=== PATIENT | female | born 1940 | race Caucasian/White ===

== ENCOUNTER → 2022-04-15 | Emergency (ER) | payer OTHER ==
[~2022-04-15] VITALS: Ht 157.5 cm; Wt 99.8 kg
[~2022-04-15] MED LIST: ALEN70TA80 PO; ALLO100T PO; AMLO-213 PO; ATEN25TA PO; CALC1TAB30 PO; CYAN-51 PO; ENAL10TA75 PO; FAMO-131 PO; FAMOTIDINE/PF INJ 20 MG/2 ML VIAL IV ONE; FOLI0.4T6 PO; IBUP-1953 PO; LORA10TA7 PO; LOVA40TA2 PO; METF-440 PO; OMEP20CA15 PO; PRED50TA PO; diphenhydrAMINE HCL 50 MG CAPSULE ONE; diphenhydrAMINE HCL 50 MG CAPSULE PO ONE; methylPREDNISolone SOD SUCC 125 MG/2ML VIAL IV ONE; methylPREDNISolone SOD SUCC 125 MG/2ML VIAL ONE
--- NOTE | 2022-04-15 12:50 | NUR ---
LIZETT [id number] FROM [facility] FOR NOTED RASH TO BLE. TAKING KEFLEX FOR UTI X WEDNESDAY, DENIES THROAT DISCOMFORT/SOB. TO ER BED 9.
[2022-04-15 13:27] LABS: BASOPHILS % (AUTO) 0.4 % (0.0-2.0); EOSINOPHILS % (AUTO) 3.6 % (0.0-6.0); HEMATOCRIT 35 % (33-45); HEMOGLOBIN 11.3 g/dL (11.5-14.8); LYMPHOCYTES # (AUTO) 0.4 K/uL (0.8-4.8); LYMPHOCYTES % (AUTO) 4.8 % (20.0-44.0); MEAN CORPUSCULAR HGB CONC 33 g/dl (31.0-36.0); MEAN CORPUSCULAR VOLUME 84 fL (82-100); MONOCYTES # (AUTO) 0.4 K/uL (0.1-1.30); MONOCYTES % (AUTO) 4.6 % (2.0-12.0); NEUTROPHILS # (AUTO) 7.6 K/uL (1.8-8.9); NEUTROPHILS % (AUTO) 86.6 % (43.0-81.0); PLATELET COUNT (AUTO) 210 K/uL (150-450); RED BLOOD CELL COUNT(AUTO) 4.15 MIL/uL (4.0-5.2); WHITE BLOOD COUNT (AUTO) 8.8 K/uL (4.3-11.0)
[2022-04-15 13:50] LABS: CALCIUM, SERUM 8.8 mg/dL (8.5-10.1); POTASSIUM 4.1 mmol/L (3.5-5.1)
--- NOTE | 2022-04-15 16:02 | NUR ---
[facility] ETA 1645.
--- NOTE | 2022-04-15 16:57 | NUR ---
IV removed. Catheter intact and site benign. Pressure and 4x4 applied to site. No bleeding noted.Patient discharged to home in stable condition. Written and verbal after care instructions given. Patient verbalizes understanding of instruction.
[2022-04-15 16:58] VITALS: BP 145/78
== END | disposition home or self-care (01) ==
LOC: ER 12:35
DX: R21 Rash and other nonspecific skin eruption (principal); T36.1X5A Adverse effect of cephalosporins and other beta-lactam antibiotics, initial encounter; I10 Essential (primary) hypertension; E11.9 Type 2 diabetes mellitus without complications; G89.4 Chronic pain syndrome; Z88.1 Allergy status to other antibiotic agents; Z88.8 Allergy status to other drugs, medicaments and biological substances; Z79.899 Other long term (current) drug therapy; Z79.84 Long term (current) use of oral hypoglycemic drugs; Y92.89 Other specified places as the place of occurrence of the external cause
CPT/HCPCS: 99284; 96374; 96375; 85025; 80048; 36415; Q0163; J3490; J2930

== ENCOUNTER 2023-10-08 15:35 | Inpatient (IN) | payer MEDICARE, OTHER ==
[~2023-10-08] VITALS: Ht 157.5 cm; Wt 111.1 kg
[~2023-10-08 15:35] MED LIST changes: -FAMOTIDINE/PF INJ 20 MG/2 ML VIAL IV ONE; -diphenhydrAMINE HCL 50 MG CAPSULE ONE; -diphenhydrAMINE HCL 50 MG CAPSULE PO ONE; -methylPREDNISolone SOD SUCC 125 MG/2ML VIAL IV ONE; -methylPREDNISolone SOD SUCC 125 MG/2ML VIAL ONE
[2023-10-08 16:28] LABS: BASOPHILS # (AUTO) 0.1 K/uL (0.0-0.2); BASOPHILS % (AUTO) 0.4 % (0.0-2.0); EOSINOPHILS % (AUTO) 0.1 % (0.0-6.0); HEMATOCRIT 41 % (33-45); HEMOGLOBIN 13.1 g/dL (11.5-14.8); LYMPHOCYTES # (AUTO) 0.5 K/uL (0.8-4.8); LYMPHOCYTES % (AUTO) 4.5 % (20.0-44.0); MEAN CORPUSCULAR HEMOGLOBIN 28 PG (26.0-33.0); MEAN CORPUSCULAR HGB CONC 32 g/dl (31.0-36.0); MEAN CORPUSCULAR VOLUME 87 fL (82-100); MONOCYTES # (AUTO) 0.3 K/uL (0.1-1.30); MONOCYTES % (AUTO) 2.5 % (2.0-12.0); NEUTROPHILS # (AUTO) 10.8 K/uL (1.8-8.9); NEUTROPHILS % (AUTO) 92.5 % (43.0-81.0); PLATELET COUNT (AUTO) 228 K/uL (150-450); RED BLOOD CELL COUNT(AUTO) 4.75 MIL/uL (4.0-5.2); RED CELL DISTRIBUTION WIDTH 16.1 % (11.5-15.0); WHITE BLOOD COUNT (AUTO) 11.7 K/uL (4.3-11.0)
[2023-10-08] MEDS ORDERED: methylPREDNISolone SOD SUCC 125 MG/2ML VIAL ONE (16:36)
[2023-10-08] MEDS: methylPREDNISolone SOD SUCC 125 MG/2ML VIAL IV ONE (16:37)
[2023-10-08] MEDS: IPRATROPIUM NEB FS 0.5 MG/2.5 ML AMPUL.NEB NEB ONE (16:44)
[2023-10-08] MEDS: ALBUTEROL FS 2.5 MG/3 ML VIAL.NEB CONTNEB ONE (16:44)
[2023-10-08] MEDS ORDERED: ALBUTEROL FS 2.5 MG/3 ML VIAL.NEB ONE (16:45)
[2023-10-08] MEDS ORDERED: IPRATROPIUM NEB FS 0.5 MG/2.5 ML AMPUL.NEB ONE (16:45)
[2023-10-08 16:47] LABS: INR 1.12 (0.91-1.10); PARTIAL THROMBOPLASTIN TIME 32.1 SEC (24.3-34.3); PROTHROMBIN TIME 11.8 SECS (9.2-11.1)
[2023-10-08 16:50] LABS: ABG BASE EXCESS 4.3 mmol/L; ABG OXYGEN SATURATION 96.5 % (92.0-98.5); ABG PCO2 62.5 mmHg (35.0-45.0); ABG PO2 96.2 mmHg (75.0-100.0); ABG TOTAL HEMOGLOBIN 14.4 G/dL (12.0-16.0); COHb 1.3 % (0.5-1.5); O2Hb 95.2 % (94.0-97.0); SITE, ABG Right Radial; VENT MODE, BG 15LPM NRB
[2023-10-08 16:54] LABS: ALANINE AMINOTRANSFERASE 16 U/L (12-78); ALBUMIN 3.1 g/dL (3.4-5.0); ALKALINE PHOSPHATASE 102 U/L (46-116); ASPARTATE AMINOTRANSFERASE 15 U/L (15-37); BILIRUBIN,DIRECT 0.1 mg/dL (0.0-0.2); BILIRUBIN,TOTAL 0.4 mg/dL (0.2-1.0); CALCIUM, SERUM 9.3 mg/dL (8.5-10.1); CARBON DIOXIDE 36 mmol/L (21-32); CHLORIDE 96 mmol/L (98-107); CREATININE 0.7 mg/dL (0.6-1.3); GLUCOSE 194 mg/dL (74-106); NT-PRO BNP 5096 pg/mL (0-125); SODIUM SERUM 139 mmol/L (136-145); TOTAL PROTEIN, SERUM 6.5 g/dL (6.4-8.2); UREA NITROGEN, BLOOD 19 mg/dL (7-18)
[2023-10-08] MEDS ORDERED: FUROSEMIDE 40 MG/4 ML VIAL ONE (17:50)
[2023-10-08] MEDS: FUROSEMIDE 40 MG/4 ML VIAL IV ONE (17:56)
[2023-10-08] MEDS ORDERED: FURO20TA4 PO (18:03)
[2023-10-08] MEDS ORDERED: METO100T14 PO (18:03)
[2023-10-08] MEDS ORDERED: DILT-32 PO (18:03)
[2023-10-08] MEDS ORDERED: POTA-10 PO (18:03)
[2023-10-08] MEDS ORDERED: METF-881 PO (18:03)
[2023-10-08] MEDS ORDERED: SENN-261 PO (18:03)
[2023-10-08] MEDS ORDERED: APIX5TAB PO (18:03)
[2023-10-08] MEDS ORDERED: LOVA20TA2 PO (18:03)
[2023-10-08 22:30] VITALS: BP 142/76; TEMP 96.9; O2SAT 96
[2023-10-08 22:45] VITALS: BP 145/98; O2SAT 95
[2023-10-08 23:00] VITALS: BP 148/77; O2SAT 96
[2023-10-08] MEDS ORDERED: ACETAMINOPHEN 325 MG TABLET PO PRN (23:00)
[2023-10-08] MEDS ORDERED: ONDANSETRON HCL/PF 4 MG/2 ML VIAL IVP PRN (23:00)
[2023-10-08] MEDS ORDERED: DEXTROSE 50%-WATER 50 ML DISP.SYRIN IV PRN (23:00)
[2023-10-08] MEDS ORDERED: Z GUARD REMEDY 4 OZ OINT TP PRN (23:00)
[2023-10-08] MEDS ORDERED: ENOXAPARIN SODIUM 40 MG/0.4 ML DISP.SYRIN SQ SCH (23:00)
[2023-10-08] MEDS: ALBUTEROL FS 2.5 MG/3 ML VIAL.NEB NEB SCH (23:21)
[2023-10-08] MEDS: IPRATROPIUM NEB FS 0.5 MG/2.5 ML AMPUL.NEB NEB SCH (23:21)
[2023-10-08 23:30] VITALS: BP 47/32; O2SAT 96
[2023-10-08] MEDS: ATORVASTATIN 40 MG TABLET PO SCH (23:53)
[2023-10-09] VITALS (48 sets, daily range): BP systolic 67–141; BP diastolic 32–98; TEMP 97–98; O2SAT 93–100
[2023-10-09 00:09] LABS: ABG BASE EXCESS 3.2 mmol/L; ABG OXYGEN SATURATION 93.9 % (92.0-98.5); ABG PCO2 58.3 mmHg (35.0-45.0); ABG PH 7.337 (7.350-7.450); ABG PO2 75.8 mmHg (75.0-100.0); ABG TOTAL HEMOGLOBIN 14.2 G/dL (12.0-16.0); AaDO2 69.6 mmHg; COHb 1.6 % (0.5-1.5); MetHb 0.3 % (0.0-1.5); O2Hb 92.1 % (94.0-97.0); SITE, ABG Right Radial
[2023-10-09] MEDS: BUMETANIDE INJ 4 MG in IV NS 0.9% 24 ML IV ONE (00:09)
[2023-10-09] MEDS: BUMETANIDE INJ 0.25 MG/ML VIAL ONE (00:20)
[2023-10-09] MEDS: methylPREDNISolone SOD SUCC 125 MG/2ML VIAL IV SCH (04:26)
[2023-10-09 05:12] LABS: BASOPHILS % (AUTO) 0.4 % (0.0-2.0); EOSINOPHILS # (AUTO) 0.1 K/uL (0.0-0.7); EOSINOPHILS % (AUTO) 0.8 % (0.0-6.0); HEMATOCRIT 41 % (33-45); HEMOGLOBIN 12.9 g/dL (11.5-14.8); LYMPHOCYTES # (AUTO) 0.2 K/uL (0.8-4.8); LYMPHOCYTES % (AUTO) 3.4 % (20.0-44.0); MEAN CORPUSCULAR HEMOGLOBIN 28 PG (26.0-33.0); MEAN CORPUSCULAR HGB CONC 32 g/dl (31.0-36.0); MEAN CORPUSCULAR VOLUME 87 fL (82-100); MONOCYTES % (AUTO) 0.5 % (2.0-12.0); NEUTROPHILS # (AUTO) 6.5 K/uL (1.8-8.9); NEUTROPHILS % (AUTO) 94.9 % (43.0-81.0); PLATELET COUNT (AUTO) 207 K/uL (150-450); RED BLOOD CELL COUNT(AUTO) 4.68 MIL/uL (4.0-5.2); WHITE BLOOD COUNT (AUTO) 6.8 K/uL (4.3-11.0)
[2023-10-09 05:38] LABS: CALCIUM, SERUM 9.3 mg/dL (8.5-10.1); CREATININE 0.8 mg/dL (0.6-1.3); PHOSPHORUS 5.6 mg/dL (2.5-4.9); POTASSIUM 3.6 mmol/L (3.5-5.1)
[2023-10-09 05:42] LABS: MAGNESIUM 1.2 mg/dL (1.8-2.4)
[2023-10-09] MEDS: BLOOD SUGAR DIAGNOSTIC 1 EACH STRIP IN SCH (07:28)
[2023-10-09] MEDS: PANTOPRAZOLE 40 MG TABLET.DR PO SCH (07:34)
[2023-10-09] MEDS: INSULIN REGULAR, HUMAN 100 UNIT/ML 3 ML VIAL SQ PRN (08:29)
[2023-10-09] MEDS: DILTIAZEM HCL CD 120 MG PO SCH (08:31)
[2023-10-09] MEDS: ALLOPURINOL 100 MG TABLET PO SCH (08:32)
[2023-10-09] MEDS: METOPROLOL TARTRATE 50 MG TABLET PO ONE (08:32)
[2023-10-09] MEDS: APIXABAN 5 MG TABLET PO SCH (08:34)
[2023-10-09] MEDS ORDERED: ALBUTEROL FS 2.5 MG/3 ML VIAL.NEB NEB PRN (09:30)
[2023-10-09] MEDS: Magnesium 1GM/D5W 100ML PREMIX 100 ML IV SCH (10:46)
[2023-10-09 11:15] LABS: ABG BASE EXCESS 8.1 mmol/L; ABG OXYGEN SATURATION 93.7 % (92.0-98.5); ABG PCO2 71.9 mmHg (35.0-45.0); ABG PH 7.328 (7.350-7.450); ABG PO2 75.7 mmHg (75.0-100.0); ABG TOTAL HEMOGLOBIN 14.2 G/dL (12.0-16.0); AaDO2 39.1 mmHg; COHb 1.3 % (0.5-1.5); MetHb 0.3 % (0.0-1.5); O2Hb 92.2 % (94.0-97.0); SITE, ABG Right Radial; VENT MODE, BG 2LPM
[2023-10-09] MEDS: *INSULIN REGULAR(HUMULIN R)HUM 100 UNIT/ML VIAL SQ PRN (17:48)
[2023-10-09] MEDS: MUPIROCIN OINT 2% 22 GM TUBE NS SCH (21:00)
[2023-10-10] VITALS (22 sets, daily range): BP systolic 94–132; BP diastolic 59–91; TEMP 97.4–97.9; O2SAT 92–100
[2023-10-10 05:17] LABS: BASOPHILS % (AUTO) 0.2 % (0.0-2.0); EOSINOPHILS # (AUTO) 0.2 K/uL (0.0-0.7); EOSINOPHILS % (AUTO) 1.3 % (0.0-6.0); HEMATOCRIT 42 % (33-45); HEMOGLOBIN 13.2 g/dL (11.5-14.8); LYMPHOCYTES # (AUTO) 0.5 K/uL (0.8-4.8); MEAN CORPUSCULAR HEMOGLOBIN 28 PG (26.0-33.0); MEAN CORPUSCULAR HGB CONC 32 g/dl (31.0-36.0); MEAN CORPUSCULAR VOLUME 88 fL (82-100); MONOCYTES # (AUTO) 0.4 K/uL (0.1-1.30); MONOCYTES % (AUTO) 2.8 % (2.0-12.0); NEUTROPHILS # (AUTO) 12.4 K/uL (1.8-8.9); NEUTROPHILS % (AUTO) 91.7 % (43.0-81.0); PLATELET COUNT (AUTO) 221 K/uL (150-450); RED BLOOD CELL COUNT(AUTO) 4.75 MIL/uL (4.0-5.2); RED CELL DISTRIBUTION WIDTH 16.1 % (11.5-15.0); WHITE BLOOD COUNT (AUTO) 13.5 K/uL (4.3-11.0)
[2023-10-10 05:33] LABS: ALANINE AMINOTRANSFERASE 16 U/L (12-78); ALBUMIN 2.7 g/dL (3.4-5.0); ALKALINE PHOSPHATASE 92 U/L (46-116); ASPARTATE AMINOTRANSFERASE 13 U/L (15-37); BILIRUBIN,TOTAL 0.4 mg/dL (0.2-1.0); CARBON DIOXIDE 35 mmol/L (21-32); CHLORIDE 97 mmol/L (98-107); CREATININE 0.9 mg/dL (0.6-1.3); GLUCOSE 144 mg/dL (74-106); MAGNESIUM 2.4 mg/dL (1.8-2.4); PHOSPHORUS 5.3 mg/dL (2.5-4.9); POTASSIUM 3.7 mmol/L (3.5-5.1); SODIUM SERUM 140 mmol/L (136-145); TOTAL PROTEIN, SERUM 5.8 g/dL (6.4-8.2); UREA NITROGEN, BLOOD 41 mg/dL (7-18)
[2023-10-10] MEDS: methylPREDNISolone SOD SUCC 125 MG/2ML VIAL IV SCH (08:40)
[2023-10-10] MEDS: FUROSEMIDE 40 MG/4 ML VIAL IV SCH (09:23)
[2023-10-10] MEDS: POTASSIUM CHLORIDE 20 MEQ TAB.PRT.SR PO SCH (09:23)
[2023-10-11] VITALS (14 sets, daily range): BP systolic 108–135; BP diastolic 59–82; TEMP 96.8–98.3; O2SAT 95–100
[2023-10-11 07:08] LABS: HEMATOCRIT 42 % (33-45); HEMOGLOBIN 13.1 g/dL (11.5-14.8); LYMPHOCYTES # (AUTO) 0.4 K/uL (0.8-4.8); LYMPHOCYTES % (AUTO) 3.4 % (20.0-44.0); MEAN CORPUSCULAR HEMOGLOBIN 27 PG (26.0-33.0); MEAN CORPUSCULAR HGB CONC 31 g/dl (31.0-36.0); MEAN CORPUSCULAR VOLUME 87 fL (82-100); MONOCYTES # (AUTO) 0.5 K/uL (0.1-1.30); MONOCYTES % (AUTO) 4.4 % (2.0-12.0); NEUTROPHILS # (AUTO) 10.7 K/uL (1.8-8.9); NEUTROPHILS % (AUTO) 92.2 % (43.0-81.0); PLATELET COUNT (AUTO) 239 K/uL (150-450); RED BLOOD CELL COUNT(AUTO) 4.81 MIL/uL (4.0-5.2); RED CELL DISTRIBUTION WIDTH 16.4 % (11.5-15.0); WHITE BLOOD COUNT (AUTO) 11.6 K/uL (4.3-11.0)
[2023-10-11 07:30] LABS: ALBUMIN 2.4 g/dL (3.4-5.0); BILIRUBIN,TOTAL 0.4 mg/dL (0.2-1.0); CALCIUM, SERUM 8.7 mg/dL (8.5-10.1); MAGNESIUM 2.5 mg/dL (1.8-2.4); PHOSPHORUS 3.8 mg/dL (2.5-4.9); POTASSIUM 4.8 mmol/L (3.5-5.1); TOTAL PROTEIN, SERUM 5.7 g/dL (6.4-8.2)
[2023-10-11 09:17] LABS: CREATININE 0.8 mg/dL (0.6-1.3)
[2023-10-12] VITALS (13 sets, daily range): BP systolic 119–147; BP diastolic 82–98; TEMP 97.7–97.9; O2SAT 94–100
[2023-10-13] VITALS (14 sets, daily range): BP systolic 123–153; BP diastolic 66–109; TEMP 97.9–98.4; O2SAT 92–99
[2023-10-13 06:21] LABS: HEMATOCRIT 42 % (33-45); HEMOGLOBIN 13.2 g/dL (11.5-14.8); LYMPHOCYTES # (AUTO) 0.3 K/uL (0.8-4.8); MEAN CORPUSCULAR HEMOGLOBIN 28 PG (26.0-33.0); MEAN CORPUSCULAR HGB CONC 31 g/dl (31.0-36.0); MEAN CORPUSCULAR VOLUME 88 fL (82-100); MONOCYTES # (AUTO) 0.4 K/uL (0.1-1.30); MONOCYTES % (AUTO) 4.3 % (2.0-12.0); NEUTROPHILS # (AUTO) 7.8 K/uL (1.8-8.9); NEUTROPHILS % (AUTO) 91.7 % (43.0-81.0); PLATELET COUNT (AUTO) 211 K/uL (150-450); RED BLOOD CELL COUNT(AUTO) 4.79 MIL/uL (4.0-5.2); RED CELL DISTRIBUTION WIDTH 16.3 % (11.5-15.0); WHITE BLOOD COUNT (AUTO) 8.5 K/uL (4.3-11.0)
[2023-10-13 07:07] LABS: CALCIUM, SERUM 8.9 mg/dL (8.5-10.1); CREATININE 0.6 mg/dL (0.6-1.3); POTASSIUM 4.5 mmol/L (3.5-5.1)
[2023-10-14] VITALS (14 sets, daily range): BP systolic 115–138; BP diastolic 72–97; TEMP 97.5–98.8; O2SAT 93–100
[2023-10-14 07:28] LABS: BASOPHILS % (AUTO) 0.1 % (0.0-2.0); EOSINOPHILS % (AUTO) 0.1 % (0.0-6.0); HEMATOCRIT 43 % (33-45); HEMOGLOBIN 13.7 g/dL (11.5-14.8); LYMPHOCYTES # (AUTO) 0.3 K/uL (0.8-4.8); LYMPHOCYTES % (AUTO) 3.8 % (20.0-44.0); MEAN CORPUSCULAR HEMOGLOBIN 28 PG (26.0-33.0); MEAN CORPUSCULAR HGB CONC 32 g/dl (31.0-36.0); MEAN CORPUSCULAR VOLUME 87 fL (82-100); MONOCYTES # (AUTO) 0.5 K/uL (0.1-1.30); MONOCYTES % (AUTO) 6.5 % (2.0-12.0); NEUTROPHILS # (AUTO) 7.5 K/uL (1.8-8.9); NEUTROPHILS % (AUTO) 89.5 % (43.0-81.0); PLATELET COUNT (AUTO) 202 K/uL (150-450); RED BLOOD CELL COUNT(AUTO) 4.97 MIL/uL (4.0-5.2); RED CELL DISTRIBUTION WIDTH 16.1 % (11.5-15.0); WHITE BLOOD COUNT (AUTO) 8.4 K/uL (4.3-11.0)
[2023-10-14 07:49] LABS: CALCIUM, SERUM 9.1 mg/dL (8.5-10.1); CREATININE 0.8 mg/dL (0.6-1.3); POTASSIUM 4.2 mmol/L (3.5-5.1)
[2023-10-15] VITALS (15 sets, daily range): BP systolic 108–151; BP diastolic 57–93; TEMP 97.4–98.6; O2SAT 94–100
[2023-10-15] MEDS ORDERED: METH4TAB3 PO (09:07)
[2023-10-16] VITALS: BP 126/82; TEMP 97.2; O2SAT 97
[2023-10-16 04:31] VITALS: BP 147/86; TEMP 97.5; O2SAT 98
[2023-10-16 07:55] VITALS: O2SAT 96
[2023-10-16 08:00] VITALS: BP 124/80; TEMP 96.4; O2SAT 98
[2023-10-16 08:10] VITALS: O2SAT 98
[2023-10-16 08:31] VITALS: BP 124/80
== END 2023-10-16 14:31 | DRG 291 ==
LOC: ER 15:40 → ICU 21:22 → TELE1 10-10 14:02
PROVIDERS: ADMIT Nurse Practitioner Acute Care; ATTEND Legal Medicine
PROC: 5A09357 Assistance with Respiratory Ventilation, Less than 24 Consecutive Hours, Continuous Positive Airway Pressure (ICD-10-PCS; principal; 2023-10-08)
PROC: 05HA33Z Insertion of Infusion Device into Left Brachial Vein, Percutaneous Approach (ICD-10-PCS; 2023-10-08)
PROC: B54NZZA Ultrasonography of Left Upper Extremity Veins, Guidance (ICD-10-PCS; 2023-10-08)
PROC: 5A09357 Assistance with Respiratory Ventilation, Less than 24 Consecutive Hours, Continuous Positive Airway Pressure (ICD-10-PCS; 2023-10-09)
DX: I11.0 Hypertensive heart disease with heart failure (principal); I50.33 Acute on chronic diastolic (congestive) heart failure; J96.01 Acute respiratory failure with hypoxia; N17.0 Acute kidney failure with tubular necrosis; J96.02 Acute respiratory failure with hypercapnia; J44.1 Chronic obstructive pulmonary disease with (acute) exacerbation; I48.20 Chronic atrial fibrillation, unspecified; J98.11 Atelectasis; E66.2 Morbid (severe) obesity with alveolar hypoventilation; Z68.41 Body mass index [BMI] 40.0-44.9, adult; D68.69 Other thrombophilia; E11.9 Type 2 diabetes mellitus without complications; E78.5 Hyperlipidemia, unspecified; E83.42 Hypomagnesemia; F45.8 Other somatoform disorders; G89.4 Chronic pain syndrome; I27.20 Pulmonary hypertension, unspecified; I48.0 Paroxysmal atrial fibrillation; M81.0 Age-related osteoporosis without current pathological fracture; Z79.01 Long term (current) use of anticoagulants; Z79.84 Long term (current) use of oral hypoglycemic drugs; Z87.891 Personal history of nicotine dependence; Z88.0 Allergy status to penicillin; D72.829 Elevated white blood cell count, unspecified; Z20.822 Contact with and (suspected) exposure to COVID-19
CPT/HCPCS: 36415; 36600; 71045-TC; 80048-TC; 80053-TC; 80061-TC; 80076-TC; 82803-TC; 82962-TC; 83605-TC; 83735-TC; 83880; 84100-TC; 84484-TC; 85025-TC; 85730-TC; 87040-TC; 87081-TC; 93307-TC; 93970-TC; 94660; 94760-TC; 94799-TC; 97110-TC; 97530-TC; 99082-TC; A4223; G0378; J1815; J1940; J2930; J3475; J3490; J7030; J7040